=== PATIENT | male | born 1985 | race Caucasian/White ===

== ENCOUNTER 2023-10-19 12:53 | Inpatient (IN) | payer OTHER ==
[~2023-10-19] VITALS: Ht 165.1 cm; Wt 95.7 kg
[2023-10-19] MEDS: SODIUM CHLORIDE 0.9% 1,000 ML IV ONE ×2 (13:15→17:01)
[2023-10-19 13:28] LABS: CLARITY URINE CLEAR (CLEAR); COLOR URINE YELLOW (YELLOW); PROTEIN URINE NEGATIVE (NEGATIVE); SPECIFIC GRAVITY URINE 1.036 (1.005-1.030)
[2023-10-19 13:29] VITALS: O2SAT 99
[2023-10-19 13:29] LABS: GLUCOSE URINE 3+ (NEGATIVE); KETONES URINE NEGATIVE (NEGATIVE); LEUKOCYTE ESTERASE URINE NEGATIVE (NEGATIVE); NITRITE URINE NEGATIVE (NEGATIVE); OCCULT BLOOD URINE NEGATIVE (NEGATIVE); UROBILINOGEN URINE 0.2 E.U./dL (0.2-1.0)
[2023-10-19] MEDS: MIDAZOLAM HCL 2 MG/2 ML VIAL IV ONE (13:29)
[2023-10-19] MEDS: DIPHENHYDRAMINE 50MG/ML VIAL IV ONE (13:29)
[2023-10-19] MEDS: HALOPERIDOL LACTATE 5MG/ML VIAL IM ONE (13:29)
[2023-10-19 14:17] LABS: *AMPHETAMINES SCREEN URINE NEGATIVE (NEGATIVE)
[2023-10-19 14:18] LABS: *BARBITURATES SCREEN URINE NEGATIVE (NEGATIVE); *BENZODIAZEPINES SCREEN URINE NEGATIVE (NEGATIVE); *COCAINE SCREEN URINE NEGATIVE (NEGATIVE); CANNABINOID URINE SCREEN NEGATIVE (NEGATIVE); ECSTASY MDMA SCREEN URINE NEGATIVE (NEGATIVE); METHADONE URINE SCREEN NEGATIVE (NEGATIVE); OPIATES URINE SCREEN NEGATIVE (NEGATIVE); PHENCYCLIDINE URINE SCREEN NEGATIVE (NEGATIVE)
[2023-10-19 14:20] LABS: SQUAMOUS EPITHELIAL CELL URINE RARE /lpf (RARE/1+); YEAST URINE 1+
[2023-10-19 14:21] LABS: BACTERIA URINE TRACE
[2023-10-19 14:22] LABS: RBC URINE NONE SEEN /hpf (0-2); WBC URINE 0-2 /hpf (0-2)
[2023-10-19 14:41] LABS: BASOPHILS % 0.4 % (0.0-2.0); EOSINOPHILS % 0.6 % (0.0-5.0); HEMATOCRIT. 44.1 % (42.0-52.0); LYMPHOCYTES % 45.2 % (20.0-50.0); MEAN CORPUSCULAR HEMOGLOBIN 32.1 pg (28.0-32.0); MEAN CORPUSCULAR HGB CONC 33.9 g/dL (31.0-37.0); MEAN CORPUSCULAR VOLUME 94.6 fL (80.0-94.0); MONOCYTES % 8.3 % (2.0-8.0); NEUTROPHILS % 45.5 % (40.0-76.0); PLATELET 227 x1000/uL (130-400); RED BLOOD CELL COUNT 4.67 mill/uL (4.7-6.1); RED CELL DISTRIBUTION WIDTH 14.2 % (11.6-14.6); WHITE BLOOD COUNT 6.2 x1000/uL (4.5-11.0)
[2023-10-19 14:45] LABS: CHLORIDE 102 mEq/L (98-107); POTASSIUM 3.7 mEq/L (3.5-5.1); SODIUM 137 mEq/L (136-145)
[2023-10-19 14:46] LABS: BG BASE EXCESS -5.1 mmol/L (-2.0-2.0); BG CARBOXYHEMOGLOBIN 0.6 % (0.5-1.5); BG DEOXYHEMOGLOBIN 6.6 % (0.0-5.0); BG FRACTION INSPIRED OXYGEN 21; BG HCO3 ACT 19.4 mmol/L (22.0-26.0); BG METHEMOGLOBIN 0.3 % (0.0-1.5); BG OXYGEN SATURATION 93.3 % (92.0-98.5); BG OXYHEMOGLOBIN 92.5 % (94.0-97.0); BG PCO2 34.8 mmHg (35.0-45.0); BG PH 7.364 (7.350-7.450); BG PO2 71.7 mmHg (75.0-100.0); BG SAMPLE SITE LEFT RADIAL; BG TOTAL HEMOGLOBIN 15.8 g/dL (12.0-18.0); BG VENT MODE ROOM AIR
[2023-10-19 14:47] LABS: CALCIUM 9.2 mg/dL (8.7-10.4); CARBON DIOXIDE 20 mEq/L (21-32)
[2023-10-19 14:52] LABS: CREATININE 1.3 mg/dL (0.6-1.3); UREA NITROGEN BLOOD 10 mg/dL (9-23)
[2023-10-19 14:53] LABS: ETHANOL BLOOD 223 mg/dL (<10)
[2023-10-19 14:54] LABS: ACETAMINOPHEN < 2 ug/mL (10-30); ALANINE AMINOTRANSFERASE 110 IU/L (10-49); ASPARTATE AMINOTRANSFERASE 35 IU/L (<34)
[2023-10-19 14:55] LABS: BILIRUBIN TOTAL 0.2 mg/dL (0.1-1.0); PROTEIN TOTAL 6.8 g/dL (6.0-8.3)
[2023-10-19 14:59] LABS: TROPONIN I HIGH SENSITIVITY < 4 ng/L (3.0-53)
[2023-10-19 15:03] LABS: GLUCOSE 598 mg/dL (70-105)
[2023-10-19] MEDS ORDERED: INSULIN REGULAR (HUMULIN R) 300UNITS/3ML VIAL SUBCUT ONE (15:30)
[2023-10-19] MEDS ORDERED: FLUCONAZOLE 50MG TABLET PO ONE (15:30)
[2023-10-19 15:52] LABS: BETA HYDROXYBUTYRATE 0.3 mMol/L (0.0-0.3)
[2023-10-19] MEDS ORDERED: INSULIN REGULAR (HUMULIN R) 300UNITS/3ML VIAL SUBCUT NR (17:00)
[2023-10-19] MEDS ORDERED: DEXTROSE 50% WATER 50ML SYRINGE IV PRN ×2 (17:00→22:45)
[2023-10-19] MEDS ORDERED: INSULIN REGULAR 100U/100ML PMX 100 ML IV SCH ×2 (17:00→19:59)
[2023-10-19] MEDS ORDERED: POTASSIUM CHLORIDE 40 MEQ in SODIUM CHLORIDE 0.9% 230 ML IV PRN (17:00)
[2023-10-19] MEDS ORDERED: DEXT 5%/0.9% NACL 1,000 ML IV SCH (17:00)
[2023-10-19] MEDS ORDERED: KCL 20MEQ/100ML PREMIX 100 ML IV PRN (17:00)
[2023-10-19] MEDS: INSULIN REGULAR (HUMULIN R) 300UNITS/3ML VIAL IV NR (17:01)
[2023-10-19] MEDS: FLUCONAZOLE 150MG TABLET PO NR (17:01)
[2023-10-19] MEDS: BLOOD SUGAR DIAGNOSTIC STRIP TEST SCH (17:02)
[2023-10-19] MEDS ORDERED: ONDANSETRON HCL 4MG/2ML INJ IV PRN (17:15)
[2023-10-19] MEDS ORDERED: ACETAMINOPHEN 650MG/20.3ML UDC GT PRN (17:15)
[2023-10-19] MEDS ORDERED: ACETAMINOPHEN 650MG SUPP PR PRN (17:15)
[2023-10-19] MEDS ORDERED: IPRATROPIUM/ALBUTEROL 0.5-3(2.5)MG/3ML NEB HHN PRN (17:15)
[2023-10-19] MEDS: SODIUM CHLORIDE 0.45% 1,000 ML IV SCH (17:27)
[2023-10-19] MEDS: KCL 20MEQ/100ML X 2 FOR TOTAL KCL 40MEQ/200ML IV SCH (17:34)
[2023-10-19] MEDS: INSULIN REGULAR 100U/100ML PMX 100 ML IV SCH (17:55)
[2023-10-19] MEDS: FOLIC ACID 1 MG, THIAMINE HCL 100 MG, MVI, ADULT NO.1 10 ML in DEXTROSE 5% WATER 1,000 ML IV ONE (18:03)
[2023-10-19] MEDS: PANTOPRAZOLE SODIUM 40 MG/VIAL IV SCH (18:07)
[2023-10-19] MEDS ORDERED: CLONIDINE 0.1MG TABLET PO PRN (18:30)
[2023-10-19 18:46] LABS: IRON 60 ug/dL (65-175)
[2023-10-19 18:47] LABS: LDL CHOLESTEROL 136 mg/dL (5-100); TRIGLYCERIDE 382 mg/dL (0-150)
[2023-10-19 18:48] LABS: CHOLESTEROL 190 mg/dL (<200); HDL CHOLESTEROL 32 mg/dL (>55)
[2023-10-19 18:49] LABS: PHOSPHORUS 2.7 mg/dL (2.5-4.9); TOTAL IRON BINDING CAPACITY 320 ug/dl (250-425)
[2023-10-19 18:51] LABS: T4 FREE 1.18 ng/dL (0.89-1.76); THYROID STIMULATING HORMONE 1.11 uIU/mL (0.55-4.78)
[2023-10-19 18:52] LABS: FERRITIN 348 ng/mL (22-322); FOLIC ACID (FOLATE) SERUM 15.46 ng/mL (>5.38); VITAMIN B12 SERUM 673 pg/mL (211-911)
[2023-10-19] MEDS: DEXT 5%/0.45% NACL 1000ML 1,000 ML IV SCH (20:15)
[2023-10-19] MEDS: PIPERACILLIN/TAZO 3.375G/50ML 50 ML IV SCH (20:43)
[2023-10-19 21:58] LABS: CHLORIDE 109 mEq/L (98-107); POTASSIUM 3.5 mEq/L (3.5-5.1); SODIUM 140 mEq/L (136-145)
[2023-10-19 21:59] LABS: CARBON DIOXIDE 22 mEq/L (21-32)
[2023-10-19 22:00] LABS: CALCIUM 8.3 mg/dL (8.7-10.4)
[2023-10-19 22:04] LABS: CREATININE 0.7 mg/dL (0.6-1.3)
[2023-10-19 22:05] LABS: UREA NITROGEN BLOOD 10 mg/dL (9-23)
[2023-10-19 22:07] LABS: LACTIC ACID 2.5 mmol/L (0.4-2.0)
[2023-10-19 22:08] LABS: GLUCOSE 194 mg/dL (70-105)
[2023-10-19] MEDS ORDERED: LACTATED RINGERS 1,000 ML IV SCH (22:45)
[2023-10-19] MEDS ORDERED: INSULIN REGULAR (HUMULIN R) 300UNITS/3ML VIAL IV ONE (23:15)
[2023-10-19] MEDS: INSULIN GLARGINE 100 UNITS/ML SUBCUT NR (23:45)
[2023-10-20 00:12] LABS: CHLORIDE 109 mEq/L (98-107); POTASSIUM 3.9 mEq/L (3.5-5.1); SODIUM 142 mEq/L (136-145)
[2023-10-20 00:13] LABS: CALCIUM 8.2 mg/dL (8.7-10.4); CARBON DIOXIDE 25 mEq/L (21-32)
[2023-10-20 00:18] LABS: CREATININE 0.7 mg/dL (0.6-1.3); GLUCOSE 137 mg/dL (70-105); UREA NITROGEN BLOOD 12 mg/dL (9-23)
[2023-10-20] MEDS: INSULIN LISPRO (HIGH DOSE) 100 UNITS/ML SUBCUT SCH (01:55)
[2023-10-20] MEDS: INSULIN REGULAR (HUMULIN R) 300UNITS/3ML VIAL IV NR (04:32)
[2023-10-20 05:22] LABS: CHLORIDE 108 mEq/L (98-107); POTASSIUM 3.4 mEq/L (3.5-5.1); SODIUM 140 mEq/L (136-145)
[2023-10-20 05:23] LABS: BASOPHILS % 0.4 % (0.0-2.0); CARBON DIOXIDE 24 mEq/L (21-32); EOSINOPHILS % 0.8 % (0.0-5.0); HEMATOCRIT. 41.1 % (42.0-52.0); HEMOGLOBIN. 14.1 g/dL (14.0-18.0); LYMPHOCYTES % 32.3 % (20.0-50.0); MEAN CORPUSCULAR HEMOGLOBIN 32.4 pg (28.0-32.0); MEAN CORPUSCULAR HGB CONC 34.2 g/dL (31.0-37.0); MEAN CORPUSCULAR VOLUME 94.6 fL (80.0-94.0); MEAN PLATELET VOLUME 9.5 fl (7.4-10.4); MONOCYTES % 8.8 % (2.0-8.0); NEUTROPHILS % 57.7 % (40.0-76.0); PLATELET 210 x1000/uL (130-400); RED BLOOD CELL COUNT 4.35 mill/uL (4.7-6.1); RED CELL DISTRIBUTION WIDTH 14.1 % (11.6-14.6)
[2023-10-20 05:24] LABS: CALCIUM 8.4 mg/dL (8.7-10.4)
[2023-10-20 05:28] LABS: CREATININE 0.7 mg/dL (0.6-1.3); GLUCOSE 221 mg/dL (70-105); UREA NITROGEN BLOOD 10 mg/dL (9-23)
[2023-10-20] MEDS ORDERED: INSULIN LISPRO 100 UNITS/ML SUBCUT SCH ×2 (08:20→14:00)
[2023-10-20] MEDS: DEXT 5%/0.45% NACL 1000ML 1,000 ML IV SCH (08:53)
[2023-10-20] MEDS: BLOOD SUGAR DIAGNOSTIC STRIP TEST SCH ×2 (09:00→14:09)
[2023-10-20] MEDS: POTASSIUM CHLORIDE 20MEQ TABLET SR PO NR (09:05)
[2023-10-20] MEDS: THIAMINE HCL 100MG TABLET PO SCH (10:04)
[2023-10-20] MEDS: FOLIC ACID 1MG TABLET PO SCH (10:04)
[2023-10-20] MEDS: INSULIN GLARGINE 100 UNITS/ML SUBCUT SCH (10:45)
[2023-10-20] MEDS ORDERED: BLOOD SUGAR DIAGNOSTIC STRIP TEST SCH (14:00)
[2023-10-20] MEDS: INSULIN LISPRO 100 UNITS/ML SUBCUT SCH (14:40)
[2023-10-20 15:00] VITALS: BP 117/72; PULSE 63; RESP 18; TEMP 97.5
[2023-10-20 20:00] VITALS: BP 127/78; PULSE 70; RESP 18; TEMP 98.1
[2023-10-20] MEDS: SODIUM CHLORIDE 0.45% 1,000 ML IV SCH (22:36)
[2023-10-21] VITALS: BP 130/82; PULSE 68; RESP 18; TEMP 98.7
[2023-10-21 04:00] VITALS: BP 128/82; PULSE 62; RESP 18; TEMP 96.4
[2023-10-21] MEDS: INSULIN LISPRO 100 UNITS/ML SUBCUT SCH (06:51)
[2023-10-21] MEDS: BLOOD SUGAR DIAGNOSTIC STRIP TEST SCH (06:52)
[2023-10-21 07:28] LABS: HEMATOCRIT 43.7 % (42.0-52.0); HEMOGLOBIN 14.8 g/dL (14.0-18.0); MEAN CORPUSCULAR HEMOGLOBIN 32.2 pg (28.0-32.0); MEAN CORPUSCULAR HGB CONC 33.9 g/dL (31.0-37.0); MEAN CORPUSCULAR VOLUME 95.1 fL (80.0-94.0); PLATELET 201 x1000/uL (130-400); RED BLOOD CELL COUNT 4.59 mill/uL (4.7-6.1); RED CELL DISTRIBUTION WIDTH 14.3 % (11.6-14.6); WHITE BLOOD COUNT 8.8 x1000/uL (4.5-11.0)
[2023-10-21 07:31] LABS: CHLORIDE 104 mEq/L (98-107); POTASSIUM 3.5 mEq/L (3.5-5.1); SODIUM 137 mEq/L (136-145)
[2023-10-21 07:32] LABS: CALCIUM 9.7 mg/dL (8.7-10.4); CARBON DIOXIDE 25 mEq/L (21-32)
[2023-10-21 07:37] LABS: CREATININE 0.7 mg/dL (0.6-1.3); GLUCOSE 173 mg/dL (70-105); UREA NITROGEN BLOOD 7 mg/dL (9-23)
[2023-10-21 08:00] VITALS: BP 121/87; PULSE 69; RESP 18; TEMP 97.9
[2023-10-21 12:00] VITALS: BP 106/56; PULSE 64; RESP 19; TEMP 97.5
[2023-10-21] MEDS: PIPERACILLIN/TAZO 3.375G/50ML 50 ML IV SCH (13:28)
[2023-10-21 16:00] VITALS: BP 117/77; PULSE 77; RESP 20; TEMP 98.2
[2023-10-21] MEDS: LORAZEPAM 2MG/ML INJ IV PRN (22:58)
[2023-10-22] VITALS: BP 104/65; PULSE 73; RESP 18; TEMP 98.4
[2023-10-22 04:00] VITALS: BP 106/77; PULSE 87; RESP 19; TEMP 97.5
[2023-10-22 08:00] VITALS: BP 108/63; PULSE 75; RESP 20; TEMP 98
[2023-10-22] MEDS: FAMOTIDINE 20MG TABLET PO SCH (09:03)
[2023-10-22] MEDS: INSULIN GLARGINE 100 UNITS/ML SUBCUT SCH (10:00)
[2023-10-22 12:00] VITALS: BP 112/68; PULSE 76; RESP 18; TEMP 97
[2023-10-22 16:00] VITALS: BP 110/70; PULSE 76; RESP 20; TEMP 98
[2023-10-22] MEDS ORDERED: ZOLPIDEM TARTRATE 5MG TABLET PO ONE (21:45)
[2023-10-22] MEDS: ZOLPIDEM TARTRATE 5MG TABLET PO NR (21:57)
[2023-10-23] VITALS: BP_SYST 120; BP_DIAS 6; BP_DIAS 66; PULSE 58; RESP 20; TEMP 96.9
[2023-10-23 08:00] VITALS: BP 124/65; TEMP 97.9
[2023-10-23] MEDS ORDERED: INSULIN GLARGINE 100 UNITS/ML SUBCUT SCH (10:00)
[2023-10-23] MEDS ORDERED: TRAZODONE HCL 50MG TABLET PO SCH (21:00)
== END 2023-10-23 11:45 | disposition left against medical advice (07) | DRG 817 ==
LOC: ER 12:53 → EDBEDREQ 15:31 → MICUSO 16:43 → EDBEDREQTM 16:55 → EDBEDREQ 16:55 → EDBEDREQSVC 19:51 → 8WST 10-20 15:24 → 6WST 10-22 12:55
PROVIDERS: ADMIT Internal Medicine; ATTEND Internal Medicine
DX: T43.222A Poisoning by selective serotonin reuptake inhibitors, intentional self-harm, initial encounter (principal); E11.00 Type 2 diabetes mellitus with hyperosmolarity without nonketotic hyperglycemic-hyperosmolar coma (NKHHC); E87.20 Acidosis, unspecified; E11.65 Type 2 diabetes mellitus with hyperglycemia; A08.4 Viral intestinal infection, unspecified; A05.9 Bacterial foodborne intoxication, unspecified; D75.89 Other specified diseases of blood and blood-forming organs; E66.9 Obesity, unspecified; E78.5 Hyperlipidemia, unspecified; B37.49 Other urogenital candidiasis; E87.6 Hypokalemia; F10.229 Alcohol dependence with intoxication, unspecified; F31.9 Bipolar disorder, unspecified; Z68.37 Body mass index [BMI] 37.0-37.9, adult; Y90.7 Blood alcohol level of 200-239 mg/100 ml; I10 Essential (primary) hypertension; Z20.822 Contact with and (suspected) exposure to COVID-19; K76.9 Liver disease, unspecified; Z53.29 Procedure and treatment not carried out because of patient's decision for other reasons; X58.XXXA Exposure to other specified factors, initial encounter; Z79.4 Long term (current) use of insulin; Z91.148 Patient's other noncompliance with medication regimen for other reason; Y93.89 Activity, other specified; Y92.89 Other specified places as the place of occurrence of the external cause; Y99.8 Other external cause status
CPT/HCPCS: 36415; 36600; 71045; 80048; 80053; 80061; 80305; 80307; 80320; 80329; 81003; 82010; 82375; 82607; 82728; 82746; 82805; 82962; 83036; 83540; 83550; 83605; 83735; 83930; 84100; 84439; 84443; 84484; 85025; 85027; 87426; 93005; 93970; 99285; C9113; J1200; J1630; J1815; J2060; J2250; J2543; J3411; J3480; J3490; J7030; J7070; G0480